=== PATIENT | male | born 2000 | race Caucasian/White ===

== ENCOUNTER 2021-11-30 08:23 | Outpatient (REF) | payer OTHER, SELFPAY ==
[2021-11-30 11:30] LABS: Appearance Urine HAZY; Color Urine YELLOW; Glucose Urine UA NEG (NEG); Leukocyte Esterase Urine NEG (NEG); Nitrite Urine NEG (NEG); Specific Gravity - Urine 1.025 (1.005-1.025); Urine Blood TRACE (NEG); Urine Ketones NEG (NEG); Urine Protein NEG (NEG-TRACE)
[2021-11-30 11:49] LABS: Mucus Urine 2+ /LPF; RBC Urine 0-2 /HPF (0); Squamous Epithelial Cell Urine TRACE /LPF; WBC Urine 0 /HPF (0-4)
[2021-11-30 11:52] LABS: UACC Culture Trigger NO
[2021-11-30 12:07] LABS: Alanine Aminotransferase 24 U/L (0-40); Albumin Level 4.4 g/dL (3.5-5.0); Alkaline Phosphatase 77 U/L (39-117); Anion Gap 9 (12-20); Aspartate Amino Transferase 20 U/L (5-37); Bilirubin Total 0.9 mg/dL (0.0-1.0); Blood Urea Nitrogen 16 mg/dL (9-16); Calcium 9.4 mg/dL (8.4-10.2); Carbon Dioxide 28 mmol/L (22-29); Chloride 108 mmol/L (96-108); Cholesterol 187 mg/dL; Estimated Glomerular Filt Rate > 60; Glucose Fasting 92 mg/dL (60-99); HDL Cholesterol 36 mg/dL; LDL Cholesterol Calculated 128 mg/dl; Potassium 4.3 mmol/L (3.3-5.1); Sodium 141 mmol/L (135-145); Total Protein 7.3 g/dL (6.5-8.0); Triglycerides 117 mg/dL
[2021-11-30 12:10] LABS: HBS Num1 5.15 mIU/mL (0-7.99); HBc Num1 0.11 S/CO (0.00-0.79); HBsAGNum1 0.21 S/CO (0.00-0.99); HIV AB/AG Nonreactive (Nonreactive); HIV Num 1 0.09 S/CO (0.00-0.99); Hepatitis B Core Antibody Nonreactive (Nonreactive); Hepatitis B Surface Antigen Negative (Negative); ~HepC Num1 0.08 S/CO (0.00-0.79); ~Hepatitis B Surface Antibody NONREACTIVE (Nonreactive); ~Hepatitis C Antibody Nonreactive (Nonreactive)
[2021-11-30 12:18] LABS: TSH reflex Free T4 1.98 uIU/mL (0.32-4.0)
[2021-12-01 07:03] LABS: Syphilis Screen Nonreactive (Nonreactive)
== END 2021-11-30 08:24 | disposition home or self-care (01) ==
LOC: HO.WFDLDS 08:23
PROVIDERS: Visit Provider Family Medicine
DX: Z00.00 Encounter for general adult medical examination without abnormal findings (principal); Z11.4 Encounter for screening for human immunodeficiency virus [HIV]; Z11.3 Encounter for screening for infections with a predominantly sexual mode of transmission
CPT/HCPCS: 36415; 80053; 80061; 81001; 84443; 86704; 86706; 86780; 86803; 87340; 87389

== ENCOUNTER 2023-05-23 13:03 | Outpatient (AMB) | payer OTHER, SELFPAY ==
--- NOTE | 2023-05-23 13:11 | A.OFFPC_ITS ---
Vital Signs 05/23/23 13:12 Height 5 ft 7 in Weight 247 lb BMI 38.7 BP 130/60 Blood Pressure Location Rt brachial Position Sitting Respiration 13 Pulse 76 Pulse Source Pulse Oximeter Temp 98.9 F Temp Source Oral Pulse Oximetry (%) 96 Oxygen Delivery Method Room Air Intake Visit Reasons: CPE Intake Note: Patient is here for a physical today. Patient reports he has no concerns at this time. 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 Labs were drawn last year 11/30/21. Triglycerides 117. TC 187. LDL 128. HDL low at 36. Elevated blood pressure reading at 130/60. 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 HPI Comments History of Present Illness Details Documentation assistance for Vijay Islas MD, was provided by Zelalem Bravo, [employer] on 05/23/2023 1:39 PM EST. I, Dr. Islas, have read, observed, and verified documentation. [facility] Social History (Updated 05/23/23 @ 13:22 by Valarie Stubbs CMA) Household Members: Family Household Members Other:: Parents Housing: House Alcohol intake: current Alcohol intake frequency: a few times a month Alcohol type: wine Patient Tobacco Use Status: Former Tobacco user Years Smoked: 1 e-Cigarette/Vaping Use: Former Use Second Hand Smoke Exposure: No service: No Current occupational status: employed Current occupation: [employer] Current occupational exposures/hazards: No Sexual orientation: Unable to collect Gender identity: Unable to collect Cognitive needs: No Hearing needs: No Vision needs: No Questionnaire PHQ-9 Over the last 2 weeks, how often have you been bothered by any of the following problems? 1. Little interest or pleasure in doing things: not at all 2. Feeling down, depressed, or hopeless: not at all 3. Trouble falling or staying asleep, or sleeping too much: not at all 4. Feeling tired or having little energy: not at all 5. Poor appetite or overeating: not at all 6. Feeling bad about yourself - or that you are a failure or have let yourself or your family down: not at all 7. Trouble concentrating on things, such as reading the newspaper or watching television: not at all 8. Moving or speaking so slowly that other people could have noticed. Or the opposite - being so fidgety or restless that you have been moving around a lot more than usual: not at all 9. Thoughts that you would be better off or of hurting yourself in some way: not at all Total score: 0 Depression Screening Interpretation: Negative Depression Screening Done: Yes [id number] - PHQ-9 Billing: Yes Source: Developed by Drs. Trip Maxwell, Harriett Townsend, Sixto Sierra and colleagues, with an educational geoffrey from [employer]. Thrive Questionnaire Date Thrive assessed: 05/23/23 I am a: Patient What is your living situation today?: I have a steady place to live Within the past 12 months, did the food you bought not last and you didn't have the money to get more?: Never true Within the past 12 months, did you worry whether your food would run out before you got money to buy more?: Never true Do you have trouble paying for medicines?: No Do you have trouble getting transportation to medical appointments?: No Do you have trouble paying your heating and electricity bill?: No Do you have trouble taking care of your child, family member or friend?: No Do you have trouble with day-to-day activities such as bathing, preparing meals, shopping, managing finances, etc.?: No Are you currently unemployed and looking for a job?: No Are you interested in more education?: No Please select the resources that you would like help with: None Currently or been in a relationship where the following occur: no concerns reported AUDIT C Alcohol Use Questionnaire (AUDIT-C) 1. How often do you have a drink containing alcohol?: 2-4 times a month 2. How many drinks containing alcohol do you have on a typical day when you are drinking?: 1 or 2 3. How often do you have six or more drinks on one occasion?: Never Total Score: 2 CON-7 AMB Questionnaire CON-7 Date CON - 7 assessed: 05/23/23 Feeling nervous, anxious, or on edge: 0 = Not at all Not being able to stop or control worryin = Not at all Worrying too much about different things: 0 = Not at all Trouble relaxin = Not at all Being so restless that it is hard to sit still: 0 = Not at all Becoming easily annoyed or irritable: 0 = Not at all Feeling afraid as if something awful might happen: 0 = Not at all Total CON-7 score (0-4 normal; 5-9 mild; 10-14 moderate; 15-21 severe): 0 Source: Developed by Drs. Trip Maxwell, Harriett Townsend, Sixto Sierra and colleagues, with an educational geoffrey from [employer]. CON-7 Assessment Billing CON-7 Assessment Tool: CON-7 Assessment 67840 Review of Systems Const Denies chills, Denies fatigue, Denies fever(s), Denies headache(s) and Denies weakness Eyes Denies change in vision ENT Denies dizziness, Denies headache(s), Denies hearing loss, Denies nasal congestion, Denies sinus pain, Denies sinus pressure and Denies sore throat Card Denies chest pain, Denies lightheadedness, Denies dyspnea and Denies other (palpitations) Resp Denies cough, Denies dyspnea and Denies wheezing GI Denies abdominal pain, Denies melena, Denies hematochezia, Denies change in bowel habits, Denies dyspepsia and Denies nausea Denies hematuria and Denies dysuria Musc Denies abnormal gait, Denies myalgias, Denies arthralgias, Denies numbness and Denies tingling Skin/Breast Denies rash, Denies unusual bruising and Denies wounds Neuro Denies abnormal gait, Denies dizziness, Denies headache(s), Denies memory loss, Denies numbness, Denies Sensory deficit (Neuro), Denies tingling and Denies weakness Psych Denies anxiety, Denies depression and Denies memory loss Endo Denies cold intolerance, Denies fatigue, Denies heat intolerance, Denies polydipsia and Denies polyuria [place]/Lymph Denies easy bleeding and Denies easy bruising Aller/Immun Denies wheezing Physical exam (Primary Care) Vital Signs: Last Vital Signs Temp 98.9 F 05/23/23 13:12 Pulse 76 05/23/23 13:12 Resp 13 05/23/23 13:12 BP 130/60 05/23/23 13:12 Pulse Ox 96 05/23/23 13:12 Oxygen Delivery Method Room Air 05/23/23 13:12 BMI result Body Mass Index 38.7 Tobacco/Smoking Status: Tobacco use Status Tobacco use date assessed 05/23/23 05/23/23 13:22 Patient Tobacco Use Status Former Tobacco user 05/23/23 13:22 e-Cigarette/Vaping Use Former Use 05/23/23 13:22 PHQ-9: PHQ-9 Score PHQ-9: Total score 0 05/23/23 13:33 Depression Screening Interpretation: Negative Thrive Assessment: Date of Thrive Assessment Date Thrive assessed 05/23/23 05/23/23 13:22 Currently or been in a relationship where the following occur: no concerns reported Const General: no acute distress, well developed, alert and awake Nutritional Appearance: well nourished and obese Orientation/consciousness: patient oriented x3 HENMT Head: Yes normocephalic and Yes atraumatic Ears: hearing grossly normal bilaterally and TM's normal bilaterally General nose exam: Normal external nose present and Normal nares present Mouth: Normal oral and palatal mucosa present and moist mucous membranes Teeth and gingiva: dentition normal Throat: Yes posterior oropharynx normal Eyes General: appearance normal, both eyes and all related structures Pupils: Equal, round and reactive pupils present and Pupil accommodation reflex normal EOM: EOMs intact bilaterally Neck Neck: Yes normal visual inspection, Yes no lymphadenopathy and Yes trachea midline Thyroid: Thyroid normal Carotids: no bruits Lymphatic: no lymphadenopathy noted Chest Chest palpation & inspection: normal inspection of the chest Resp Effort & Inspection: normal respiratory effort Auscultation: clear to auscultation bilaterally Cardio Rate: regular rate Rhythm: regular rhythm Heart sounds: S1 normal heart sound present, S2 normal heart sound present, no gallops, no murmurs and no rubs Bruits: no abdominal aortic bruits and no carotid bruits GI Palpation (GI): No Abdominal aortic bruit present, Soft to palpation, nontender, No hepatosplenomegaly present and No Rebound tenderness present Auscultation: normal bowel sounds General: Yes no CVA tenderness Back/Spine/Pelvis Back: no CVA tenderness Cervical Spine: cervical ROM normal and No Cervical spine tenderness Thoracic/Lumbar Spine: thoraco-lumbar ROM normal, No pain with thoraco-lumbar ROM, No thoracic spinal tenderness and No lumbar spinal tenderness Skin Lesions: no lesions Rashes: no rashes Trauma: no lacerations or abrasions Wounds: no wounds Nails: normal Neuro General: patient oriented x3 Cranial nerves: Yes Equal, round and reactive pupils present Cognition (Neuro): normal cognition Gait exam (Neuro): Normal gait present Motor exam (neuro): 5/5 motor strength present throughout Sensory Exam: No Sensory deficit (Neuro) Deep tendon reflexes (DTR's): Right patellar reflex intensity grade: 2+ and Left patellar reflex intensity grade: 2+ Extrem General: Yes normal to inspection and No edema Psych Appearance: grossly normal Affect: normal affect Attitude: cooperative Thought process: Normal thought process present Assessment and Plan Assessment & Plan (1) Normal physical examination, routine: Code(s): Z00.00 - Encounter for general adult medical examination without abnormal findings Plan: 22-year-old?male?presents?for?complete?physical?exam Encouraged?healthy?diet?with?active?lifestyle?and?plenty?of?exercise (2) Elevated blood pressure reading: Code(s): R03.0 - Elevated blood-pressure reading, without diagnosis of hypertension Plan: Will?continue?to?monitor (3) Low HDL (under 40): Code(s): E78.6 - Lipoprotein deficiency Plan: As?above,?encouraged?increased?exercise Orders: Orders Comprehensive [place]. Panel Fast Today Z00.00 - Encounter for general adult medical examination without abnormal findings Lipid Panel Today Z00.00 - Encounter for general adult medical examination without abnormal findings TSH reflex Free T4 Today Z00.00 - Encounter for general adult medical examination without abnormal findings Microalbumin, Random (w Creat) Today I10 - Essential (primary) hypertension UA and rflx microscopic Today Z00.00 - Encounter for general adult medical examination without abnormal findings Coding Level of Care Code Est Pt Level 3 (78431) Est Pt Prev Care 18-39y(94055) Diagnoses Normal physical examination, routine Z00.00 Elevated blood pressure reading R03.0 Low HDL (under 40) E78.6 Additional Codes CON-7 Assessment Billing - CON-7 Assessment Tool: CON-7 Assessment 47840 ([id number])
[2023-05-23 13:12] VITALS: BP 130/60; PULSE 76; RESP 13; TEMP 37.2; O2SAT 96; BMI 38.7
== END 2023-05-23 13:48 | disposition home or self-care (01) ==
PROVIDERS: PCP Family Medicine; Visit Provider Family Medicine
DX: Z00.00 Encounter for general adult medical examination without abnormal findings (principal); R03.0 Elevated blood-pressure reading, without diagnosis of hypertension; E78.6 Lipoprotein deficiency
CPT/HCPCS: 99395

== ENCOUNTER 2023-06-04 11:31 | Outpatient (REF) | payer OTHER, SELFPAY ==
[2023-06-04 14:47] LABS: Appearance Urine Cloudy; Color Urine Yellow; Glucose Urine UA Negative (Negative); Leukocyte Esterase Urine Negative (Negative); Nitrite Urine Negative (Negative); Specific Gravity - Urine 1.025 (1.005-1.025); Urine Blood Negative (Negative); Urine Ketones Negative (Negative); Urine Protein Negative (Neg-Trace)
[2023-06-04 15:15] LABS: Creatinine Urine 203.53 mg/dL; Microalbum/Creatinine Ratio Ur 5.8 ug/mg cr (<30)
[2023-06-04 15:27] LABS: Alanine Aminotransferase 26 U/L (0-40); Albumin Level 4.5 g/dL (3.5-5.0); Alkaline Phosphatase 75 U/L (39-117); Anion Gap 11 (12-20); Aspartate Amino Transferase 21 U/L (5-37); Bilirubin Total 1.3 mg/dL (0.0-1.0); Blood Urea Nitrogen 17 mg/dL (9-16); Calcium 9.3 mg/dL (8.4-10.2); Carbon Dioxide 26 mmol/L (22-29); Chloride 106 mmol/L (96-108); Cholesterol 225 mg/dL (<200); Estimated Glomerular Filt Rate > 60; Glucose Fasting 85 mg/dL (60-99); HDL Cholesterol 37 mg/dL (>40); LDL Cholesterol Calculated 151 mg/dL (<100); Potassium 4.1 mmol/L (3.3-5.1); Sodium 139 mmol/L (135-145); Total Protein 7.6 g/dL (6.5-8.0); Triglycerides 185 mg/dL (<150)
[2023-06-04 15:43] LABS: TSH reflex Free T4 2.04 uIU/mL (0.32-4.0)
== END 2023-06-04 11:32 | disposition home or self-care (01) ==
LOC: HO.WFDLDS 11:31
PROVIDERS: Visit Provider Family Medicine
DX: Z00.00 Encounter for general adult medical examination without abnormal findings (principal); I10 Essential (primary) hypertension
CPT/HCPCS: 36415; 80053; 80061; 81003; 82043; 82570; 84443

== ENCOUNTER 2023-07-04 17:07 | Outpatient (AMB) | payer OTHER, SELFPAY ==
--- NOTE | 2023-07-04 16:52 | MHC.PC.OV ---
Intake Visit Reasons: follow up cpe Allergies No Known Allergies Allergy (Verified 05/23/23 13:18) Tobacco use date assessed: 05/23/23 [facility] Social History (Updated 05/23/23 @ 13:22 by Valarie Stubbs [facility]) Household Members: Family Household Members Other:: Parents Housing: House Alcohol intake: current Alcohol intake frequency: a few times a month Alcohol type: wine Patient Tobacco Use Status: Former Tobacco user Years Smoked: 1 e-Cigarette/Vaping Use: Former Use Second Hand Smoke Exposure: No service: No Current occupational status: employed Current occupation: [employer] Current occupational exposures/hazards: No Sexual orientation: Unable to collect Gender identity: Unable to collect Cognitive needs: No Hearing needs: No Vision needs: No Questionnaire Thrive Questionnaire Date Thrive assessed: 05/23/23 CON-7 AMB Questionnaire CON-7 Date CON - 7 assessed: 05/23/23 Source: Developed by Drs. Trip Maxwell, Harriett Townsend, Sixto Sierra and colleagues, with an educational geoffrey from [employer]. Physical exam (Primary Care) Tobacco/Smoking Status: Tobacco use Status Tobacco use date assessed 05/23/23 05/23/23 13:22 Patient Tobacco Use Status Former Tobacco user 05/23/23 13:22 e-Cigarette/Vaping Use Former Use 05/23/23 13:22 Thrive Assessment: Date of Thrive Assessment Date Thrive assessed 05/23/23 05/23/23 13:22 Coding
--- NOTE | 2023-07-04 16:52 | MHC.PC.OV ---
Intake Visit Reasons: follow up cpe Intake Note: Patient is following up on labs today. Allergies No Known Allergies Allergy (Verified 07/04/23 16:54) Tobacco use date assessed: 07/04/23 HPI follow up cpe HPI Details 23 y/o male presents to f/u CPE-labs via telemedicine. Labs were drawn 06/04/23. Reviewed labs with pt. Triglycerides 185. TC 225. LDL 151. HDL low at 37. PFSH Social History Household Members: Family Household Members Other:: Parents Housing: House Alcohol intake: current Alcohol intake frequency: a few times a month Alcohol type: wine Patient Tobacco Use Status: Former Tobacco user Years Smoked: 1 e-Cigarette/Vaping Use: Former Use Second Hand Smoke Exposure: No service: No Current occupational status: employed Current occupation: [employer] Current occupational exposures/hazards: No Sexual orientation: Unable to collect Gender identity: Unable to collect Cognitive needs: No Hearing needs: No Vision needs: No Questionnaire Thrive Questionnaire Date Thrive assessed: 05/23/23 CON-7 AMB Questionnaire CON-7 Date CON - 7 assessed: 05/23/23 Source: Developed by Drs. Trip Maxwell, Harriett Townsend, Sixto Sierra and colleagues, with an educational geoffrey from [employer]. Review of Systems Const Denies chills, Denies fatigue, Denies fever(s), Denies headache(s) and Denies weakness ENT Denies dizziness and Denies headache(s) Card Denies dyspnea Resp Denies cough, Denies dyspnea, Denies wheezing and Denies other (shortness of breath) Musc Denies numbness and Denies tingling Neuro Denies dizziness, Denies headache(s), Denies numbness, Denies tingling and Denies weakness Psych Denies anxiety and Denies depression Endo Denies fatigue Aller/Immun Denies wheezing Physical exam (Primary Care) Tobacco/Smoking Status: Tobacco use Status Tobacco use date assessed 07/04/23 07/04/23 16:55 Patient Tobacco Use Status Former Tobacco user 07/04/23 16:55 e-Cigarette/Vaping Use Former Use 07/04/23 16:55 Thrive Assessment: Date of Thrive Assessment Date Thrive assessed 05/23/23 07/04/23 16:55 Telehealth Telehealth Location of provider rendering services: practice address Location of patient: address on file Patient Identification confirmed using: Name, : Yes Telehealth method: voice only Patient verbally consented to treatment: Yes Patient verbally consented to billing insurance company: Yes Patient informed of any privacy concerns related to visit: No Minutes spent on Phone/Video with Pt.: 4 Assessment and Plan Assessment & Plan (1) Hypercholesterolemia: Code(s): E78.00 - Pure hypercholesterolemia, unspecified Plan: TC?and?LDL?have?risen?and?are?too?high Encouraged?lifestyle?changes?including?a?diet?low?in?saturated?fats?and?cholesterol,?exercise?and?weight?loss We?discussed?that?if?lipids?are?still?too?high?or?he?is?unable?to?make?a?significant?improvement,?we?should?discuss?medications?at?his?next?visit. (2) Low HDL (under 40): Code(s): E78.6 - Lipoprotein deficiency Plan: HDL?is?low?and?I?encouraged?exercise Orders: Orders Comprehensive [place]. Panel Fast Today E78.00 - Pure hypercholesterolemia, unspecified, Z00.00 - Encounter for general adult medical examination without abnormal findings Lipid Panel Today E78.00 - Pure hypercholesterolemia, unspecified, Z00.00 - Encounter for general adult medical examination without abnormal findings Coding Level of Care Code Tele Est Pt Level 2 (23352) Diagnoses Hypercholesterolemia E78.00 Low HDL (under 40) E78.6
== END 2023-07-04 17:15 ==
LOC: HO.HMGFM 17:08
PROVIDERS: PCP Family Medicine; Visit Provider Family Medicine
DX: E78.00 Pure hypercholesterolemia, unspecified (principal); E78.6 Lipoprotein deficiency
CPT/HCPCS: 99212

== ENCOUNTER 2023-09-05 15:47 | Outpatient (AMB) | payer OTHER, SELFPAY ==
[2023-09-05 15:56] VITALS: BP 134/66; PULSE 86; TEMP 37.3; O2SAT 96; BMI 37.1
--- NOTE | 2023-09-05 15:56 | MHC.PC.OV ---
Vital Signs 09/05/23 15:56 Height 5 ft 7 in Weight 237 lb BMI 37.1 BP 134/66 Blood Pressure Location Lt brachial Position Sitting Pulse 86 Pulse Source Pulse Oximeter Temp 99.2 F Temp Source Oral Pulse Oximetry (%) 96 Intake Visit Reasons: follow up cpe Intake Note: Patient is here with respiratory illness since yesterday, coughing, stuffiness. Allergies No Known Allergies Allergy (Verified 09/05/23 16:00) Tobacco use date assessed: 09/05/23 HPI follow up cpe HPI Details 23 y/o male presents today with complaints of a respiratory illness. Symptoms started yesterday. He reports coughing and congestion. [facility] Social History Household Members: Family Household Members Other:: Parents Housing: House Alcohol intake: current Alcohol intake frequency: a few times a month Alcohol type: wine Patient Tobacco Use Status: Former Tobacco user Years Smoked: 1 e-Cigarette/Vaping Use: Former Use Second Hand Smoke Exposure: No service: No Current occupational status: employed Current occupation: [employer] Current occupational exposures/hazards: No Sexual orientation: Unable to collect Gender identity: Unable to collect Cognitive needs: No Hearing needs: No Vision needs: No Questionnaire PHQ-9 Over the last 2 weeks, how often have you been bothered by any of the following problems? 1. Little interest or pleasure in doing things: not at all 2. Feeling down, depressed, or hopeless: not at all 3. Trouble falling or staying asleep, or sleeping too much: not at all 4. Feeling tired or having little energy: not at all 5. Poor appetite or overeating: not at all 6. Feeling bad about yourself - or that you are a failure or have let yourself or your family down: not at all 7. Trouble concentrating on things, such as reading the newspaper or watching television: not at all 8. Moving or speaking so slowly that other people could have noticed. Or the opposite - being so fidgety or restless that you have been moving around a lot more than usual: not at all 9. Thoughts that you would be better off or of hurting yourself in some way: not at all Total score: 0 Source: Developed by Drs. Trip L. Harriett Maxwell, Sixto Sierra and colleagues, with an educational geoffrey from [employer]. Thrive Questionnaire Date Thrive assessed: 05/23/23 CON-7 AMB Questionnaire CON-7 Date CON - 7 assessed: 09/05/23 Feeling nervous, anxious, or on edge: 0 = Not at all Not being able to stop or control worryin = Not at all Worrying too much about different things: 0 = Not at all Trouble relaxin = Not at all Being so restless that it is hard to sit still: 0 = Not at all Becoming easily annoyed or irritable: 0 = Not at all Feeling afraid as if something awful might happen: 0 = Not at all Total CON-7 score (0-4 normal; 5-9 mild; 10-14 moderate; 15-21 severe): 0 Source: Developed by Drs. Trip Maxwell, Harriett Townsend, Sixto Sierra and colleagues, with an educational geoffrey from [employer]. Review of Systems Const Denies chills, Denies fatigue, Denies fever(s), Denies headache(s) and Denies weakness ENT Denies dizziness, Denies headache(s) and Reports nasal congestion Card Denies dyspnea Resp Reports cough, Denies dyspnea, Denies wheezing and Denies other (shortness of breath) Musc Denies numbness and Denies tingling Neuro Denies dizziness, Denies headache(s), Denies numbness, Denies tingling and Denies weakness Psych Denies anxiety and Denies depression Endo Denies fatigue Aller/Immun Denies wheezing Physical exam (Primary Care) Vital Signs: Last Vital Signs Temp 99.2 F 09/05/23 15:56 Pulse 86 09/05/23 15:56 BP 134/66 09/05/23 15:56 Pulse Ox 96 09/05/23 15:56 BMI result Body Mass Index 37.1 Tobacco/Smoking Status: Tobacco use Status Tobacco use date assessed 09/05/23 09/05/23 16:08 Patient Tobacco Use Status Former Tobacco user 09/05/23 15:57 e-Cigarette/Vaping Use Former Use 09/05/23 15:57 PHQ-9: PHQ-9 Score PHQ-9: Total score 0 09/05/23 16:08 Thrive Assessment: Date of Thrive Assessment Date Thrive assessed 05/23/23 09/05/23 15:57 Const Other: Ill-appearing General: well developed; No acute distress Nutritional Appearance: well nourished Orientation/consciousness: patient oriented x3 [facility] Head: Yes normocephalic and Yes atraumatic Eyes General: appearance normal, both eyes and all related structures Pupils: Equal, round and reactive pupils present EOM: EOMs intact bilaterally Resp Other: Upper airway secretions Effort & Inspection: normal respiratory effort Neuro General: patient oriented x3 and gait normal Cranial nerves: Yes Equal, round and reactive pupils present Psych Affect: normal affect Assessment and Plan Assessment & Plan (1) Viral illness: Code(s): B34.9 - Viral infection, unspecified Plan: Viral?illness There?is?no?antibiotic?medication?for?viruses.??They?must?run?their?course.??Most?average?5-7?days?but?7-10?days?is?not?uncommon?and?up?to?14?days?is?still?possible.??A?cough?is?often?the?last?symptom?to?resolve?and?this?can?last?for?weeks?in?some?ca ses. Rest Hydrate?well?-??Drink?plenty?of?fluids.??Especially?water. Tylenol?or?ibuprofen?for?muscle?aches,?headache,?fever/discomfort Can?use?[id number]?medications?for?cough?such?as?Delsym?or?DayQuil.??Prescription?cough?medicines?have?been?shown?to?be?no?better. Sending?nasal?swab?for?COVID/flu/RSV Giving?him?a?note?to?be?out?through?Saturday?and?he?can?return?on?Saturday Coding Level of Care Code Est Pt Level 3 (74760) Diagnoses Viral illness B34.9
== END 2023-09-05 16:43 | disposition home or self-care (01) ==
PROVIDERS: PCP Family Medicine; Visit Provider Family Medicine
DX: B34.9 Viral infection, unspecified (principal)
CPT/HCPCS: 99213

== ENCOUNTER 2023-09-05 16:48 | Outpatient (REF) | payer OTHER, SELFPAY ==
[2023-09-06 14:36] LABS: Influenza A PCR POSITIVE (Negative); Influenza B PCR NEGATIVE (Negative); Resp Syncy Virus RNA Qual PCR NEGATIVE (Negative); SARS COV2 PCR INHOUSE NEGATIVE (Negative)
== END 2023-09-05 16:49 | disposition home or self-care (01) ==
LOC: HO.LAB 16:48
PROVIDERS: Visit Provider Family Medicine
DX: R09.89 Other specified symptoms and signs involving the circulatory and respiratory systems (principal); Z11.52 Encounter for screening for COVID-19; Z20.828 Contact with and (suspected) exposure to other viral communicable diseases
CPT/HCPCS: 0241U

== ENCOUNTER 2023-10-24 11:10 | Outpatient (REF) | payer OTHER, SELFPAY ==
[2023-10-24 15:06] LABS: Alanine Aminotransferase 19 U/L (0-40); Albumin Level 4.3 g/dL (3.5-5.0); Alkaline Phosphatase 72 U/L (39-117); Anion Gap 10 (12-20); Aspartate Amino Transferase 16 U/L (5-37); Bilirubin Total 0.8 mg/dL (0.0-1.0); Blood Urea Nitrogen 14 mg/dL (9-16); Calcium 9.1 mg/dL (8.4-10.2); Carbon Dioxide 25 mmol/L (22-29); Chloride 110 mmol/L (96-108); Cholesterol 192 mg/dL (<200); Estimated Glomerular Filt Rate > 60; Glucose Fasting 92 mg/dL (60-99); HDL Cholesterol 38 mg/dL (>40); LDL Cholesterol Calculated 132 mg/dL (<100); Potassium 4.4 mmol/L (3.3-5.1); Sodium 141 mmol/L (135-145); Total Protein 7.4 g/dL (6.5-8.0); Triglycerides 110 mg/dL (<150)
== END 2023-10-24 11:11 | disposition home or self-care (01) ==
LOC: HO.WFDLDS 11:10
PROVIDERS: Visit Provider Family Medicine
DX: Z00.00 Encounter for general adult medical examination without abnormal findings (principal); E78.00 Pure hypercholesterolemia, unspecified
CPT/HCPCS: 36415; 80053; 80061

== ENCOUNTER → 2023-11-19 13:52 | Outpatient (AMB) | payer OTHER, SELFPAY ==
--- NOTE | 2023-11-19 13:45 | A.OFFPC_ITS ---
Intake Visit Reasons: follow up lipids Intake Note: Patient is following up on lipids today. Allergies No Known Allergies Allergy (Verified 11/19/23 13:46) Tobacco use date assessed: 09/05/23 Dental Screening Dental Screen Date: 11/19/23 HPI follow up lipids HPI Details 23 y/o male presents to f/u hyperlipidem ia via telemedicine. Labs were drawn 10/24/23. Reviewed labs with pt. Triglycerides 110. TC 192. LDL improved from 151 to 132. HDL low at 38. Pt states he has been going to the gym and dieting better. He continues to steadily lose weight. HPI Comments History of Present Illness Details Documentation assistance for Vijay Islas MD, was provided by Zelalem Bravo, Front Office Developer on 11/19/2023 5:25 PM EST. I, Dr. Islas, have read, observed, and verified documentation. [facility] Social History Household Members: Family Household Members Other:: Parents Housing: House Alcohol intake: current Alcohol intake frequency: a few times a month Alcohol type: wine Patient Tobacco Use Status: Former Tobacco user Years Smoked: 1 e-Cigarette/Vaping Use: Former Use Second Hand Smoke Exposure: No service: No Current occupational status: employed Current occupation: [employer] Current occupational exposures/hazards: No Sexual orientation: Unable to collect Gender identity: Unable to collect Cognitive needs: No Hearing needs: No Vision needs: No Questionnaire Thrive Questionnaire Date Thrive assessed: 05/23/23 CON-7 AMB Questionnaire CON-7 Date CON - 7 assessed: 09/05/23 Source: Developed by Drs. Trip Maxwell, Harriett Townsend, Sixto Sierra and colleagues, with an educational geoffrey from [employer]. Review of Systems Const Denies chills, Denies fatigue, Denies fever(s), Denies headache(s) and Denies weakness ENT Denies dizziness and Denies headache(s) Card Denies dyspnea Resp Denies cough, Denies dyspnea, Denies wheezing and Denies other (shortness of b reath) Musc Denies numbness and Denies tingling Neuro Denies dizziness, Denies headache(s), Denies numbness, Denies tingling and Denies weakness Psych Denies anxiety and Denies depression Endo Denies fatigue Aller/Immun Denies wheezing Physical exam (Primary Care) Tobacco/Smoking Status: Tobacco use Status Tobacco use date assessed 09/05/23 11/19/23 13:47 Patient Tobacco Use Status Former Tobacco user 11/19/23 13:47 e-Cigarette/Vaping Use Former Use 11/19/23 13:47 Thrive Assessment: Date of Thrive Assessment Date Thrive assessed 05/23/23 11/19/23 13:47 Telehealth Telehealth Telehealth Platform: Telephone Location of provider rendering services: practice address Location of patient: address on file Patient Identification confirmed using: Name, : Yes Telehealth method: voice only Patient verbally consented to treatment: Yes Patient verbally consented to billing insurance company: Yes Patient informed of any privacy concerns related to visit: Yes Minutes spent on Phone/Video with Pt.: 5 Assessment and Plan Assessment & Plan (1) Hypercholesterolemia: Code(s): E78.00 - Pure hypercholesterolemia, unspecified Plan: Cholesterol?levels?are?much?improved. Continue?to?work?at?a?diet?low ?in?saturated?fats?and?cholesterol.??Continue?weight?loss?and?exercise. No?medication?indicated?at?this?time (2) Low HDL (under 40): Code(s): E78.6 - Lipoprotein deficiency Plan: Slightly?improved?but?still?below?goal?of?less?than?40 Continue?to?exercise Coding Level of Care Code Tele Est Pt Level 2 (86018) Diagnoses Hypercholesterolemia E78.00 Low HDL (under 40) E78.6
== END ==
PROVIDERS: PCP Family Medicine; Visit Provider Family Medicine
DX: E78.00 Pure hypercholesterolemia, unspecified (principal); E78.6 Lipoprotein deficiency
CPT/HCPCS: 99212